=== PATIENT | male | born 1955 | race Caucasian/White ===

== ENCOUNTER 2023-02-07 23:19 | Emergency (ER) | payer OTHER ==
[~2023-02-07] VITALS: Ht 167.6 cm; Wt 127.0 kg
[~2023-02-07 23:19] MED LIST: AMIT25 PO; ASPI325 PO; ASPI81CH PO; ATOR40TA PO; COMBIVENT RESPIM4 GM INH; LISI20 PO; TRAM50 PO
[2023-02-08] MEDS ORDERED: CYCL10 PO (02:43)
[2023-02-08 02:47] VITALS: BP 131/81
== END 2023-02-08 02:52 | disposition home or self-care (01) ==
LOC: ER 23:19
DX: M54.50 Low back pain, unspecified (principal); G51.0 Bell's palsy; Z79.82 Long term (current) use of aspirin
CPT/HCPCS: 96372; 99283-25; A9270; J1885